=== PATIENT | female | born 1980 | race Caucasian/White ===

== ENCOUNTER 2016-04-09 17:25 | Emergency (ER) | payer SELFPAY ==
--- NOTE | 2016-04-09 17:54 | ER Document Report ---
ED Medical Screen (RME) - General Chief Complaint: Urinary Problem Stated Complaint: PAINFUL URINATION Time seen by provider: 17:52 Mode of Arrival: Ambulatory Information source: Patient Notes: 35 yo female presents to ed for cramping fever and pain with urination. 5 weeks TRAVEL OUTSIDE OF THE [place] IN LAST 30 DAYS: No - HPI Onset: Other - 2 days Onset/Duration: Gradual, Worse Quality of pain: Burning, Cramping Severity: Moderate Pain Level: 2 Associated Symptoms: Other - frequent urination burning cramping Exacerbated by: Denies Relieved by: Denies Similar symptoms previously: Yes Recently seen / treated by doctor: No - Related Data Smoking: Cigarettes - 1/2 ppd Frequency of alcohol use: None Drug Abuse: None Allergies/Adverse Reactions: No Known Allergies Allergy (Verified 02/12/15 22:58) Past Medical History Past Surgical History: Reports: Hx Abdominal Surgery - pyloric stenosis, Hx Appendectomy, Hx Section, Hx Gynecologic Surgery - surgery to remove mirena - Immunizations Immunizations up to date: No Hx Diphtheria, Pertussis, Tetanus Vaccination: Yes Physical Exam - Vital signs Vitals: Temp Pulse Resp BP Pulse Ox 97.9 F 98 16 110/65 99 04/09/16 17:39 04/09/16 17:39 04/09/16 17:39 04/09/16 17:39 04/09/16 17:39 Course - Vital Signs Vital signs: Temp Pulse Resp BP Pulse Ox 97.9 F 98 16 110/65 99 04/09/16 17:39 04/09/16 17:39 04/09/16 17:39 04/09/16 17:39 04/09/16 17:39
[2016-04-09 18:14] LABS: APPEARANCE,URINE CLEAR; BILIRUBIN,URINE NEGATIVE (NEGATIVE); GLUCOSE, URINE NEGATIVE (NEGATIVE); KETONES,URINE NEGATIVE (NEGATIVE); LEUKOCYTE ESTERASE,URINE NEGATIVE (NEGATIVE); NITRITE,URINE NEGATIVE (NEGATIVE); PROTEIN,URINE NEGATIVE (NEGATIVE); URINE SPECIFIC GRAVITY 1.004; UROBILINOGEN,URINE NEGATIVE mg/dL (<2.0)
--- NOTE | 2016-04-09 21:08 | ER Document Report ---
ED GI/ - General Chief Complaint: Pain With Urination Stated Complaint: PAINFUL URINATION Mode of Arrival: Ambulatory Information source: Patient Notes: Patient is a 35-year-old female who presents approximately 5 weeks with some lower abdominal cramping and dysuria. Patient states the dysuria started today and she is also having more frequency of urination. She denies any low back pain, fever, chills, hematuria, vaginal bleeding or discharge. TRAVEL OUTSIDE OF THE [place] IN LAST 30 DAYS: No - Related Data Allergies/Adverse Reactions: No Known Allergies Allergy (Verified 02/12/15 22:58) Past Medical History - General Information source: Patient - Social History Smoking Status: Current Every Day Smoker Frequency of alcohol use: None Drug Abuse: None Family History: Arthritis, DM, Hypertension, Malignancy, Thyroid Disfunction, Other - Pulmonary embolism. Patient has suicidal ideation: No Patient has homicidal ideation: No Past Surgical History: Reports: Hx Abdominal Surgery - pyloric stenosis, Hx Appendectomy, Hx Section, Hx Gynecologic Surgery - surgery to remove mirena - Immunizations Immunizations up to date: No Hx Diphtheria, Pertussis, Tetanus Vaccination: Yes Review of Systems - Review of Systems Constitutional: No symptoms reported EENT: No symptoms reported Cardiovascular: No symptoms reported Respiratory: No symptoms reported Gastrointestinal: No symptoms reported Genitourinary: See HPI Female Genitourinary: See HPI Musculoskeletal: No symptoms reported Skin: No symptoms reported Hematologic/Lymphatic: No symptoms reported Neurological/Psychological: No symptoms reported Physical Exam - Vital signs Vitals: Temp Pulse Resp BP Pulse Ox 97.9 F 98 16 110/65 99 04/09/16 17:39 04/09/16 17:39 04/09/16 17:39 04/09/16 17:39 04/09/16 17:39 - Notes Notes: PHYSICAL EXAMINATION: GENERAL: Well-appearing and in no acute distress. HEAD: Atraumatic, normocephalic. EYES: Pupils equal round and reactive to light, extraocular movements intact, sclera anicteric, conjunctiva are normal. NECK: Normal range of motion, supple without lymphadenopathy LUNGS: CTAB and equal. No wheezes rales or rhonchi. HEART: Regular rate and rhythm without murmurs ABDOMEN: Soft, mild suprapubic tenderness. No guarding, no rebound BACK: no vertebral tenderness, normal ROM GI/: no CVA tenderness EXTREMITIES: Normal range of motion, no pitting edema. No cyanosis. NEUROLOGICAL: Cranial nerves grossly intact. Normal sensory/motor exams. PSYCH: Normal mood, normal affect. SKIN: Warm, Dry, normal turgor, no rashes or lesions noted Course - Re-evaluation Re-evalutation: 04/10/16 06:56 Ultrasound does not reveal an intrauterine , however patient is only approximately 5 weeks based on last menstrual period and this may be the reason nothing is being visualized on ultrasound at this time. It does not appear as though there is evidence for ectopic on ultrasound at this time. Patient did not want to wait on hCG, serum and after she was discharged nurse was called stating that the blood sent to the lab was "not good." We do not have an initial hCG quantitative to compare anything to at this time. Urine culture has been sent and pending. 04/10/16 06:57 04/10/16 06:58 - Vital Signs Vital signs: Temp Pulse Resp BP Pulse Ox 98.1 F 86 18 104/69 100 04/09/16 23:45 04/09/16 23:45 04/09/16 23:45 04/09/16 23:45 04/09/16 23:45 - Laboratory Laboratory results interpreted by me: 04/09/16 18:00 Urine HCG, Qual POSITIVE H Discharge - Discharge Clinical Impression: Dysuria Qualifiers: Weeks of gestation: less than 8 weeks Qualified Code(s): Z3A.01 - Less than 8 weeks gestation of Condition: Stable Disposition: HOME, SELF-CARE Additional Instructions: Return immediately for any new or worsening symptoms. Please return in 2 days for repeat hcg level. Follow up with obgyn, call tomorrow to make followup appointment. Prescriptions: Nitrofurantoin/Nitrofuran Mac [Macrobid 100 mg Capsule] 1 tab PO BID #14 capsule Forms: Follow-Up Laboratory Testing
[2016-04-09] MEDS ORDERED: NITROFURANTOIN MONOHYD/M-CRYST 100 MG CAPSULE PO ONE (22:54)
[2016-04-10 01:42] VITALS: BP 104/69
== END 2016-04-09 23:45 | disposition home or self-care (01) ==
LOC: ER 17:25
DX: R30.0 Dysuria (principal); Z3A.01 Less than 8 weeks gestation of pregnancy; R30.9 Painful micturition, unspecified; F17.210 Nicotine dependence, cigarettes, uncomplicated; R10.30 Lower abdominal pain, unspecified
CPT/HCPCS: 99284; 87086; 81025; 87088; 81001; 87186; 76817; 93976; J8499

== ENCOUNTER 2016-05-24 12:21 | Emergency (ER) | payer MEDICAID ==
--- NOTE | 2016-05-24 12:29 | ER Document Report ---
ED Medical Screen (RME) - General Stated Complaint: CONGESTION/COUGH Mode of Arrival: Ambulatory Information source: Patient Notes: Patient complains of cold symptoms with chest tightness, symptoms started 2 days ago. Patient is currently 10 weeks . No fever hx: None I have greeted and performed a rapid initial assessment of this patient. A comprehensive ED assessment and evaluation of the patient, analysis of test results and completion of the medical decision making process will be conducted by additional ED providers. TRAVEL OUTSIDE OF THE [place] IN LAST 30 DAYS: No - Related Data Allergies/Adverse Reactions: No Known Allergies Allergy (Verified 02/12/15 22:58) Past Medical History Past Surgical History: Reports: Hx Abdominal Surgery - pyloric stenosis, Hx Appendectomy, Hx Section, Hx Gynecologic Surgery - surgery to remove mirena - Immunizations Immunizations up to date: No Hx Diphtheria, Pertussis, Tetanus Vaccination: Yes Physical Exam - Vital signs Vitals: Temp Pulse Resp BP Pulse Ox 98.0 F 97 16 113/65 100 05/24/16 12:25 05/24/16 12:05/24/16 12:05/24/16 12:25 05/24/16 12:25 - Respiratory Respiratory status: No respiratory distress Breath sounds: Nonproductive cough. No: Rales, Rhonchi, Wheezing Course - Vital Signs Vital signs: Temp Pulse Resp BP Pulse Ox 98.0 F 97 16 113/65 100 05/24/16 12:25 05/24/16 12:25 05/24/16 12:25 05/24/16 12:25 05/24/16 12:25
--- NOTE | 2016-05-24 14:28 | ER Document Report ---
ED General - General Chief Complaint: Cold Symptoms Stated Complaint: CONGESTION/COUGH Mode of Arrival: Ambulatory Information source: Patient TRAVEL OUTSIDE OF THE [place] IN LAST 30 DAYS: No - HPI Onset: Yesterday Onset/Duration: Sudden Quality of pain: Achy, Dull Severity: Mild Associated symptoms: Body/muscle aches, Chills, Nonproductive cough. denies: Headache, Nausea, Vomiting, Shortness of breath Exacerbated by: Denies Relieved by: Denies Similar symptoms previously: No Recently seen / treated by doctor: No - Related Data Allergies/Adverse Reactions: No Known Allergies Allergy (Verified 05/24/16 12:28) Past Medical History - General Information source: Patient - Social History Smoking Status: Current Every Day Smoker Chew tobacco use (# tins/day): No Frequency of alcohol use: None Drug Abuse: None Lives with: Family Family History: Arthritis, DM, Hypertension, Malignancy, Thyroid Disfunction, Other - Pulmonary embolism. Patient has suicidal ideation: No Patient has homicidal ideation: No - Past Medical History Cardiac Medical History: Reports: None Pulmonary Medical History: Reports: None EENT Medical History: Reports: None Neurological Medical History: Reports: None Endocrine Medical History: Reports: None Renal/ Medical History: Reports: None. Denies: Hx Peritoneal Dialysis Malignancy Medical History: Reports: None GI Medical History: Reports: None Musculoskeltal Medical History: Reports None Psychiatric Medical History: Reports: None Past Surgical History: Reports: Hx Abdominal Surgery - pyloric stenosis, Hx Appendectomy, Hx Section, Hx Gynecologic Surgery - surgery to remove mirena - Immunizations Immunizations up to date: No Hx Diphtheria, Pertussis, Tetanus Vaccination: Yes Review of Systems - Review of Systems Constitutional: Chills EENT: Throat pain Cardiovascular: No symptoms reported Respiratory: See HPI, Cough Gastrointestinal: Poor appetite Genitourinary: No symptoms reported Female Genitourinary: - 10 WKS, Musculoskeletal: No symptoms reported Skin: No symptoms reported Physical Exam - Vital signs Vitals: Temp Pulse Resp BP Pulse Ox 98.0 F 97 16 113/65 100 05/24/16 12:25 05/24/16 12:25 05/24/16 12:25 05/24/16 12:25 05/24/16 12:25 Interpretation: Normal. No: Tachycardic, Tachypneic, Febrile - General General appearance: Appears well, Alert In distress: None - HEENT Head: Normocephalic Eyes: Normal Conjunctiva: Normal Ears: Normal Nasal: Normal Mouth/Lips: Normal Mucous membranes: Normal Pharynx: Erythema - MILD Neck: Normal - Respiratory Respiratory status: No respiratory distress Breath sounds: Normal, Nonproductive cough - INFREQUENT - Cardiovascular Rhythm: Regular Heart sounds: Normal auscultation Murmur: No - Abdominal Inspection: Normal Distension: No distension - Back Back: Normal - Extremities General upper extremity: Normal inspection General lower extremity: Normal inspection - Neurological Neuro grossly intact: Yes Cognition: Normal Orientation: AAOx4 - Psychological Associated symptoms: Normal affect, Normal mood - Skin Skin Temperature: Warm Skin Moisture: Dry Skin Color: Normal Skin Turgor: Elastic Course - Vital Signs Vital signs: Temp Pulse Resp BP Pulse Ox 98.0 F 97 16 113/65 100 05/24/16 12:25 05/24/16 12:25 05/24/16 12:25 05/24/16 12:25 05/24/16 12:25 Discharge - Discharge Clinical Impression: Viral upper respiratory illness Qualifiers: Weeks of gestation: 10 weeks Qualified Code(s): Z3A.10 - 10 weeks gestation of Condition: Stable Disposition: HOME, SELF-CARE Instructions: Upper Respiratory Illness ([facility]), Viral Syndrome ([facility]), Acetaminophen Additional Instructions: REST, DRINK PLENTY OF FLUIDS. YOU MAY TAKE TYLENOL IF NEEDED FOR PAIN OR FEVER CONTROL. FOLLOW UP IF NOT IMPROVED IN 3 DAYS, OR SOONER IF YOU GET WORSE OR ANY NEW PROBLEMS. Forms: Return to Work Referrals: DELLA GONZALEZ MD [Primary Care Provider] - Follow up as needed
[2016-05-24 15:16] VITALS: BP 108/66
== END 2016-05-24 15:11 | disposition home or self-care (01) ==
LOC: ER 12:21
DX: O99.511 Diseases of the respiratory system complicating pregnancy, first trimester (principal); J06.9 Acute upper respiratory infection, unspecified; B97.89 Other viral agents as the cause of diseases classified elsewhere; O26.891 Other specified pregnancy related conditions, first trimester; R05 Cough; R68.83 Chills (without fever); R63.0 Anorexia; R07.0 Pain in throat; O99.331 Smoking (tobacco) complicating pregnancy, first trimester; F17.200 Nicotine dependence, unspecified, uncomplicated; O99.89 Other specified diseases and conditions complicating pregnancy, childbirth and the puerperium; M79.1 Myalgia; Z3A.10 10 weeks gestation of pregnancy
CPT/HCPCS: 99283

== ENCOUNTER 2017-03-03 11:55 | Emergency (ER) | payer MEDICAID ==
[2017-03-03 12:16] VITALS: BP 115/76
== END 2017-03-03 13:20 | disposition left against medical advice (07) ==
LOC: ER 11:55
DX: Z53.9 Procedure and treatment not carried out, unspecified reason (principal); R05 Cough; R09.81 Nasal congestion; R51 Headache

== ENCOUNTER 2017-04-17 16:02 | Emergency (ER) | payer MEDICAID ==
--- NOTE | 2017-04-17 16:45 | ER Document Report ---
ED Medical Screen (RME) - General Chief Complaint: Pain All Over Stated Complaint: NAUSEA,DIARRHEA,BODY PAIN Time Seen by Provider: 04/17/17 16:30 Mode of Arrival: Ambulatory TRAVEL OUTSIDE OF THE [place] IN LAST 30 DAYS: No - HPI Patient complains to provider of: total body pain Onset: Other - pt states she has had "total body pain" for the past 2 months -- now with nausea, cramping of abdomen - Related Data Allergies/Adverse Reactions: levofloxacin [From Levaquin] Adverse Reaction (Intermediate, Verified 04/17/17 16:27) Home Medications: Current Home Medications No Home Medications 04/17/17 [History] Past Medical History - Social History Chew tobacco use (# tins/day): No Frequency of alcohol use: Occasional Drug Abuse: None Renal/ Medical History: Denies: Hx Peritoneal Dialysis Past Surgical History: Reports: Hx Abdominal Surgery - pyloric stenosis, Hx Appendectomy, Hx Section, Hx Gynecologic Surgery - surgery to remove mirena - Immunizations Immunizations up to date: No Hx Diphtheria, Pertussis, Tetanus Vaccination: Yes Physical Exam - Vital signs Vitals: Temp Pulse Resp BP Pulse Ox 97.6 F 99 20 125/77 98 04/17/17 16:23 04/17/17 16:23 04/17/17 16:23 04/17/17 16:23 04/17/17 16:23 Course - Vital Signs Vital signs: Temp Pulse Resp BP Pulse Ox 97.6 F 99 20 125/77 98 04/17/17 16:23 04/17/17 16:23 04/17/17 16:23 04/17/17 16:23 04/17/17 16:23
[2017-04-17 17:03] LABS: ABSOLUTE BASOPHILS # (AUTO) 0.1 10^3/uL (0.0-0.2); ABSOLUTE EOSINOPHILS # (AUTO) 0.1 10^3/uL (0.0-0.6); ABSOLUTE MONOCYTES (AUTO) 0.4 10^3/uL (0.1-1.4); ABSOLUTE NEUT (AUTO) 3.1 10^3/uL (1.7-8.2); BASOPHILS % (AUTO) 0.9 % (0-2); EOSINOPHILS % (AUTO) 2.2 % (0-6); HEMATOCRIT 45.1 % (36.0-47.0); HEMOGLOBIN 15.1 g/dL (12.0-15.5); LYMPHOCYTES % (AUTO) 34.6 % (13-45); MEAN CORPUSCULAR HEMOGLOBIN 29.9 pg (27.0-33.4); MEAN CORPUSCULAR HGB CONC 33.6 g/dL (32.0-36.0); MEAN CORPUSCULAR VOLUME 89 fl (80-97); MONOCYTES % (AUTO) 7.2 % (3-13); PLATELET COUNT 276 10^3/uL (150-450); RED BLOOD COUNT 5.05 10^6/uL (3.72-5.28); RED CELL DISTRIBUTION WIDTH 13.5 % (11.5-14.0); SEGMENTED NEUTROPHILS % (AUTO) 55.1 % (42-78); TOTAL CELLS COUNTED % (AUTO) 100 %; WHITE BLOOD COUNT 5.6 10^3/uL (4.0-10.5)
--- NOTE | 2017-04-17 17:11 | RADIOLOGY REPORT (SQ) ---
EXAM DESCRIPTION: ACUTE ABDOMEN SERIES COMPLETED DATE/TIME: 04/17/2017 5:03 pm REASON FOR STUDY: abd pain COMPARISON: 02/05/2017. NUMBER OF VIEWS: Three views. TECHNIQUE: Frontal chest, supine abdomen and upright/decubitus abdomen radiographic images acquired. LIMITATIONS: None. FINDINGS: CHEST: Lungs clear of infiltrates. FREE AIR: None. No abnormal gas collections. BOWEL GAS PATTERN: Nonobstructive pattern. No dilated loops or air fluid levels. CALCIFICATIONS: No suspicious calcifications. HARDWARE: None in the abdomen. SOFT TISSUES: No gross mass or suggestion of organomegaly. BONES: No acute fracture. No worrisome bone lesions. OTHER: No other significant finding. IMPRESSION: NO RADIOGRAPHIC EVIDENCE FOR ACUTE ABDOMINAL DISEASE. TECHNICAL DOCUMENTATION: JOB ID: [id number] [employer]- All Rights Reserved
[2017-04-17 17:19] LABS: ALANINE AMINOTRANSFERASE 32 U/L (9-52); ALBUMIN 4.4 g/dL (3.5-5.0); ALKALINE PHOSPHATASE 87 U/L (38-126); ANION GAP 12 (5-19); ASPARTATE AMINO TRANSFERASE 24 U/L (14-36); BILIRUBIN,DIRECT 0.2 mg/dL (0.0-0.4); BILIRUBIN,TOTAL 0.3 mg/dL (0.2-1.3); BLOOD UREA NITROGEN 7 mg/dL (7-20); CALCIUM 10.1 mg/dL (8.4-10.2); CARBON DIOXIDE 25 mmol/L (22-30); CHLORIDE 105 mmol/L (98-107); GLUCOSE 101 mg/dL (75-110); LIPASE 65.2 U/L (23-300); POTASSIUM 4.9 mmol/L (3.6-5.0); SODIUM 142.2 mmol/L (137-145); TOTAL PROTEIN 6.7 g/dL (6.3-8.2)
[2017-04-17 19:42] LABS: BILIRUBIN,URINE NEGATIVE (NEGATIVE); COLOR,URINE STRAW; GLUCOSE, URINE NEGATIVE (NEGATIVE); KETONES,URINE NEGATIVE (NEGATIVE); LEUKOCYTE ESTERASE,URINE NEGATIVE (NEGATIVE); NITRITE,URINE NEGATIVE (NEGATIVE); PROTEIN,URINE NEGATIVE (NEGATIVE); URINE SPECIFIC GRAVITY 1.005; UROBILINOGEN,URINE NEGATIVE mg/dL (<2.0)
[2017-04-17 19:43] LABS: APPEARANCE,URINE CLEAR
--- NOTE | 2017-04-17 20:12 | ER Document Report ---
ED General - General Chief Complaint: Pain All Over Stated Complaint: NAUSEA,DIARRHEA,BODY PAIN Time Seen by Provider: 04/17/17 16:30 Mode of Arrival: Ambulatory TRAVEL OUTSIDE OF THE [place] IN LAST 30 DAYS: No - HPI Patient complains to provider of: pain all over Associated symptoms: Body/muscle aches, Nausea Similar symptoms previously: No Recently seen / treated by doctor: No Notes: States she has had body pain all over her body for the last 2 months after taking Levaquin for urinary tract infection. She states that she was on 2 different antibiotics prior to the Levaquin but neither of them worked to her primary put her on this medication. - Related Data Allergies/Adverse Reactions: levofloxacin [From Levaquin] Adverse Reaction (Intermediate, Verified 04/17/17 16:27) Home Medications: Current Home Medications No Home Medications 04/17/17 [History] Past Medical History - General Information source: Patient - Social History Smoking Status: Current Every Day Smoker Chew tobacco use (# tins/day): No Frequency of alcohol use: Occasional Drug Abuse: None Family History: Arthritis, DM, Hypertension, Malignancy, Thyroid Disfunction, Other - Pulmonary embolism. Patient has suicidal ideation: No Patient has homicidal ideation: No Pulmonary Medical History: Reports: None Neurological Medical History: Reports: None Endocrine Medical History: Reports: None Renal/ Medical History: Reports: None. Denies: Hx Peritoneal Dialysis Malignancy Medical History: Reports: None GI Medical History: Reports: None Musculoskeltal Medical History: Reports None Skin Medical History: Reports None Other: Patient has a 4 month old child. Psychiatric Medical History: Reports: None Past Surgical History: Reports: Hx Abdominal Surgery - pyloric stenosis, Hx Appendectomy, Hx Section, Hx Gynecologic Surgery - surgery to remove mirena - Immunizations Immunizations up to date: No Hx Diphtheria, Pertussis, Tetanus Vaccination: Yes Review of Systems - Review of Systems Constitutional: denies: Chills, Diaphoresis, Fever, Malaise, Weakness, Weight gain, Weight loss, Recent illness EENT: No symptoms reported Cardiovascular: No symptoms reported Gastrointestinal: Nausea, Vomiting Genitourinary: No symptoms reported Female Genitourinary: Irregular period Musculoskeletal: Other - pain all over-joints more than muscles Skin: No symptoms reported Hematologic/Lymphatic: No symptoms reported Neurological/Psychological: No symptoms reported Physical Exam - Vital signs Vitals: Temp Pulse Resp BP Pulse Ox 97.6 F 99 20 125/77 98 04/17/17 16:23 04/17/17 16:23 04/17/17 16:23 04/17/17 16:23 04/17/17 16:23 - Notes Notes: PHYSICAL EXAMINATION: GENERAL: Well-appearing, well-nourished and in no acute distress. HEAD: Atraumatic, normocephalic. EYES: Pupils equal round and reactive to light, extraocular movements intact, conjunctiva are normal. ENT: Nares patent, oropharynx clear without exudates. Moist mucous membranes. NECK: Normal range of motion, supple without lymphadenopathy LUNGS: Breath sounds clear to auscultation bilaterally and equal. No wheezes rales or rhonchi. HEART: Regular rate and rhythm without murmurs ABDOMEN: Soft, nontender, nondistended abdomen. No guarding, no rebound. No masses appreciated. Female : deferred Musculoskeletal: Normal range of motion, no pitting or edema. No cyanosis. Mild joint laxity of bilateral upper extremity joints. No inflammatory signs of any joints. NEUROLOGICAL: Cranial nerves grossly intact. Normal speech, normal gait. Normal sensory, motor exams PSYCH: Normal mood, normal affect. SKIN: Warm, Dry, normal turgor, no rashes or lesions noted. Course - Vital Signs Vital signs: Temp Pulse Resp BP Pulse Ox 97.6 F 99 20 125/77 98 04/17/17 16:23 04/17/17 16:23 04/17/17 16:23 04/17/17 16:23 04/17/17 16:23 - Laboratory Result Diagrams: 04/17/17 16:42 04/17/17 16:42 Discharge - Discharge Clinical Impression: Body aches Disposition: HOME, SELF-CARE Referrals: [facility] [Provider Group] - Follow up as needed
[2017-04-17 20:38] VITALS: BP 107/58
== END 2017-04-17 20:37 | disposition home or self-care (01) ==
LOC: ER 16:02
DX: M25.50 Pain in unspecified joint (principal); M79.1 Myalgia; R11.2 Nausea with vomiting, unspecified; N92.6 Irregular menstruation, unspecified; F17.200 Nicotine dependence, unspecified, uncomplicated; Z87.440 Personal history of urinary (tract) infections
CPT/HCPCS: 36415; 74022; 80053; 81001; 81025; 82550; 83690; 84443; 85025; 99284

== ENCOUNTER 2017-05-03 12:56 | Emergency (ER) | payer MEDICAID ==
--- NOTE | 2017-05-03 13:16 | ER Document Report ---
ED Medical Screen (RME) - General Chief Complaint: Dizziness Stated Complaint: DIZZINESS Time Seen by Provider: 05/03/17 13:14 Mode of Arrival: Ambulatory Information source: Patient TRAVEL OUTSIDE OF THE [place] IN LAST 30 DAYS: No - HPI Patient complains to provider of: dizziness Onset: Other - pt with multiple c/o including dizziness, entire body pain, anorexia, earache, SOB ,adn palpitations for the past several days - Related Data Allergies/Adverse Reactions: levofloxacin [From Levaquin] Adverse Reaction (Intermediate, Verified 05/03/17 13:14) Past Medical History - Social History Frequency of alcohol use: Rare Drug Abuse: None Renal/ Medical History: Denies: Hx Peritoneal Dialysis Past Surgical History: Reports: Hx Abdominal Surgery - pyloric stenosis, Hx Appendectomy, Hx Section - x2, Hx Gynecologic Surgery - surgery to remove mirena, Hx Tubal Ligation - Immunizations Immunizations up to date: No Hx Diphtheria, Pertussis, Tetanus Vaccination: Yes Physical Exam - Vital signs Vitals: Temp Pulse Resp BP Pulse Ox 98.1 F 98 14 132/75 H 99 05/03/17 13:05 05/03/17 13:05 05/03/17 13:05 05/03/17 13:05 05/03/17 13:05 Course - Vital Signs Vital signs: Temp Pulse Resp BP Pulse Ox 98.1 F 98 14 132/75 H 99 05/03/17 13:05 05/03/17 13:05 05/03/17 13:05 05/03/17 13:05 05/03/17 13:05
[2017-05-03 13:56] LABS: ABSOLUTE LYMPHOCYTES (AUTO) 1.7 10^3/uL (0.5-4.7); ABSOLUTE MONOCYTES (AUTO) 0.3 10^3/uL (0.1-1.4); ABSOLUTE NEUT (AUTO) 1.8 10^3/uL (1.7-8.2); BASOPHILS % (AUTO) 0.6 % (0-2); EOSINOPHILS % (AUTO) 0.9 % (0-6); HEMATOCRIT 44.9 % (36.0-47.0); HEMOGLOBIN 15.4 g/dL (12.0-15.5); LYMPHOCYTES % (AUTO) 44.8 % (13-45); MEAN CORPUSCULAR HEMOGLOBIN 30.2 pg (27.0-33.4); MEAN CORPUSCULAR HGB CONC 34.3 g/dL (32.0-36.0); MEAN CORPUSCULAR VOLUME 88 fl (80-97); MONOCYTES % (AUTO) 8.4 % (3-13); PLATELET COUNT 255 10^3/uL (150-450); RED BLOOD COUNT 5.09 10^6/uL (3.72-5.28); RED CELL DISTRIBUTION WIDTH 13.4 % (11.5-14.0); SEGMENTED NEUTROPHILS % (AUTO) 45.3 % (42-78); TOTAL CELLS COUNTED % (AUTO) 100 %; WHITE BLOOD COUNT 3.9 10^3/uL (4.0-10.5)
[2017-05-03 14:00] LABS: APPEARANCE,URINE CLEAR; BILIRUBIN,URINE NEGATIVE (NEGATIVE); COLOR,URINE YELLOW; GLUCOSE, URINE NEGATIVE (NEGATIVE); KETONES,URINE TRACE mg/dL (NEGATIVE); LEUKOCYTE ESTERASE,URINE NEGATIVE (NEGATIVE); NITRITE,URINE NEGATIVE (NEGATIVE); PROTEIN,URINE NEGATIVE (NEGATIVE); URINE SPECIFIC GRAVITY 1.006; UROBILINOGEN,URINE NEGATIVE mg/dL (<2.0)
--- NOTE | 2017-05-03 14:05 | RADIOLOGY REPORT (SQ) ---
EXAM DESCRIPTION: CHEST PA/LAT COMPLETED DATE/TIME: 05/03/2017 1:55 pm REASON FOR STUDY: sob COMPARISON: 06/17/2014 EXAM PARAMETERS: NUMBER OF VIEWS: two views TECHNIQUE: Digital Frontal and Lateral radiographic views of the chest acquired. RADIATION DOSE: NA LIMITATIONS: none FINDINGS: LUNGS AND PLEURA: No opacities, masses or pneumothorax. No pleural effusion. MEDIASTINUM AND HILAR STRUCTURES: No masses or contour abnormalities. HEART AND VASCULAR STRUCTURES: Heart normal size. No evidence for failure. BONES: No acute findings. HARDWARE: None in the chest. OTHER: No other significant finding. IMPRESSION: NO SIGNIFICANT RADIOGRAPHIC FINDING IN THE CHEST. TECHNICAL DOCUMENTATION: JOB ID: [id number] [employer]- All Rights Reserved
[2017-05-03 14:15] LABS: ALANINE AMINOTRANSFERASE 26 U/L (9-52); ALBUMIN 4.5 g/dL (3.5-5.0); ALKALINE PHOSPHATASE 65 U/L (38-126); ANION GAP 8 (5-19); ASPARTATE AMINO TRANSFERASE 25 U/L (14-36); BILIRUBIN,DIRECT 0.2 mg/dL (0.0-0.4); BILIRUBIN,TOTAL 0.4 mg/dL (0.2-1.3); BLOOD UREA NITROGEN 7 mg/dL (7-20); CARBON DIOXIDE 27 mmol/L (22-30); CHLORIDE 105 mmol/L (98-107); CREATINE KINASE 70 U/L (30-135); GLUCOSE 105 mg/dL (75-110); POTASSIUM 3.8 mmol/L (3.6-5.0); SODIUM 140.4 mmol/L (137-145)
[2017-05-03 14:17] LABS: URINE AMPHETAMINES SCREEN NEGATIVE; URINE BARBITURATES SCREEN NEGATIVE; URINE BENZODIAZEPINES SCREEN NEGATIVE; URINE COCAINE SCREEN NEGATIVE; URINE MARIJUANA (THC) SCREEN NEGATIVE; URINE METHADONE SCREEN NEGATIVE; URINE PHENCYCLIDINE SCREEN NEGATIVE
[2017-05-03 14:35] LABS: TROPONIN I < 0.012 ng/mL
--- NOTE | 2017-05-03 14:44 | ER Document Report ---
ED General - General Chief Complaint: Dizziness Stated Complaint: DIZZINESS Time Seen by Provider: 05/03/17 13:14 Mode of Arrival: Ambulatory Information source: Patient, Relative Notes: 36-year-old female presents with complaints of multiple vague complaints. She notes she has been having intermittent back and chest pain over the past 3-4 months, notes she becomes intermittently nauseous intermittently dizzy has tingling in the fingers and toes and palpitations. Patient notes extensive stressors there are 13 people living in her house at the same time. Patient was seen here recently had negative workup TRAVEL OUTSIDE OF THE [place] IN LAST 30 DAYS: No - HPI Onset: Other Onset/Duration: Intermittent Quality of pain: Sharp Severity: Mild Pain Level: 1 Associated symptoms: Nausea, Other Exacerbated by: Denies Relieved by: Denies Similar symptoms previously: Yes Recently seen / treated by doctor: Yes - Related Data Allergies/Adverse Reactions: levofloxacin [From Levaquin] Adverse Reaction (Intermediate, Verified 05/03/17 13:14) Past Medical History - General Information source: Patient - Social History Smoking Status: Current Every Day Smoker Cigarette use (# per day): Yes Chew tobacco use (# tins/day): No Smoking Education Provided: No Frequency of alcohol use: Rare Drug Abuse: None Family History: Arthritis, DM, Hypertension, Malignancy, Thyroid Disfunction, Other - Pulmonary embolism. Patient has suicidal ideation: No Patient has homicidal ideation: No Renal/ Medical History: Denies: Hx Peritoneal Dialysis Past Surgical History: Reports: Hx Abdominal Surgery - pyloric stenosis, Hx Appendectomy, Hx Section - x2, Hx Gynecologic Surgery - surgery to remove mirena, Hx Tubal Ligation - Immunizations Immunizations up to date: No Hx Diphtheria, Pertussis, Tetanus Vaccination: Yes Review of Systems - Review of Systems Notes: REVIEW OF SYSTEMS: CONSTITUTIONAL : Denies fever, chills, or sweats. Denies recent illness. EENT: Denies eye, ear, throat, or mouth pain or symptoms. Denies nasal or sinus congestion or discharge. Denies throat, tongue, or mouth swelling or difficulty swallowing. CARDIOVASCULAR: Denies chest pain. Denies palpitations or racing or irregular heart beat. Denies ankle edema. RESPIRATORY: Admits to chest wall pain denies cough, cold, or chest congestion. Denies shortness of breath, difficulty breathing, or wheezing. GASTROINTESTINAL: Admits to nausea decreased appetite GENITOURINARY: Denies difficulty urinating, painful urination, burning, frequency, blood in urine, or discharge. FEMALE GENITOURINARY: Denies vaginal bleeding, heavy or abnormal periods, irregular periods. Denies vaginal discharge or odor. MUSCULOSKELETAL: Admits to back pain SKIN: Denies rash, lesions or sores. HEMATOLOGIC : Denies easy bruising or bleeding. LYMPHATIC: Denies swollen, enlarged glands. NEUROLOGICAL: Denies confusion or altered mental status. Denies passing out or loss of consciousness. Denies dizziness or lightheadedness. Denies headache. Denies weakness or paralysis or loss of use of either side. Denies problems with gait or speech. Denies sensory loss, numbness, or tingling. Denies seizures. PSYCHIATRIC: Admits to anxiety stress ALL OTHER SYSTEMS REVIEWED AND NEGATIVE. PHYSICAL EXAMINATION: GENERAL: Well-appearing, well-nourished and in no acute distress. HEAD: Atraumatic, normocephalic. EYES: Pupils equal round and reactive to light, extraocular movements intact, conjunctiva are normal. ENT: Nares patent, oropharynx clear without exudates. Moist mucous membranes. NECK: Normal range of motion, supple without lymphadenopathy LUNGS: Breath sounds clear to auscultation bilaterally and equal. No wheezes rales or rhonchi. HEART: Regular rate and rhythm without murmurs ABDOMEN: Soft, nontender, nondistended abdomen. No guarding, no rebound. No masses appreciated. Female : deferred Musculoskeletal: Normal range of motion, no pitting or edema. No cyanosis. NEUROLOGICAL: Cranial nerves grossly intact. Normal speech, normal gait. Normal sensory, motor exams PSYCH: Normal mood, normal affect. SKIN: Warm, Dry, normal turgor, no rashes or lesions noted. Dictation was performed using [employer] voice recognition software Physical Exam - Vital signs Vitals: Temp Pulse Resp BP Pulse Ox 98.1 F 98 14 132/75 H 99 05/03/17 13:05 05/03/17 13:05 05/03/17 13:05 05/03/17 13:05 05/03/17 13:05 Course - Re-evaluation Re-evalutation: 05/03/17 15:09 Patient's physical examination was extremely benign, she is a well-appearing female in no acute distress vital signs are normal, lab work noted no significant abnormality. I do believe this is more anxiety related in nature, patient will be started on medication and admits that she is definitely anxious and that this is definitely the cause of her complaints. I will have her follow -up with mental health as well for further evaluation care After performing a Medical Screening Examination, I estimate there is LOW risk for RUPTURED ESOPHAGUS, PNEUMOTHORAX, PULMONARY EMBOLISM, ACUTE CORONARY SYNDROME, OR THORACIC AORTIC DISSECTION, thus I consider the discharge disposition reasonable. I have reevaluated this patient multiple times and no significant life threatening changes are noted. The patient and I have discussed the diagnosis and risks, and we agree with discharging home with close follow-up. We also discussed returning to the Emergency Department immediately if new or worsening symptoms occur. We have discussed the symptoms which are most concerning (e.g., bloody sputum, worsening pain or shortness of breath) that necessitate immediate return. - Vital Signs Vital signs: Temp Pulse Resp BP Pulse Ox 98.1 F 98 14 132/75 H 99 05/03/17 13:05 05/03/17 13:05 05/03/17 13:05 05/03/17 13:05 05/03/17 13:05 - Laboratory Result Diagrams: 05/03/17 13:35 05/03/17 13:35 Laboratory results interpreted by me: 05/03/17 05/03/17 13:35 13:35 WBC 3.9 L Urine Ketones TRACE H Urine Blood MODERATE H - EKG Interpretation by Ok EKG shows normal: Sinus rhythm, Story, Intervals, QRS Complexes Discharge - Discharge Clinical Impression: Body aches, Anxiety Condition: Stable Disposition: HOME, SELF-CARE Instructions: Anxiety ([facility]) Additional Instructions: Follow up with your physician tomorrow for further care or return to the ED IMMEDIATELY if symptoms worsen or new concerns occur. If you cannot afford to follow up with your primary care physician a list of low cost clinics have been provided at the end of your discharge papers as well. Prescriptions: Hydroxyzine Pamoate [Vistaril 50 mg Capsule] 50 mg PO BID #30 capsule
[2017-05-03 15:45] VITALS: BP 110/68
--- NOTE | 2017-05-03 18:19 | EKG REPORT ---
SEVERITY:- OTHERWISE NORMAL ECG - SINUS RHYTHM BORDERLINE RIGHT AXIS DEVIATION : Confirmed by: Gabriel Caro MD 03-May-2017 18:17:40
== END 2017-05-03 15:42 | disposition home or self-care (01) ==
LOC: ER 12:56
DX: M79.1 Myalgia (principal); F41.9 Anxiety disorder, unspecified; R42 Dizziness and giddiness; F17.210 Nicotine dependence, cigarettes, uncomplicated
CPT/HCPCS: 36415; 71046; 80053; 80307; 81001; 81025; 82550; 82553; 84484; 85025; 93005; 93010; 99284

== ENCOUNTER 2017-05-19 13:16 | Emergency (ER) | payer SELFPAY ==
[2017-05-19 13:38] VITALS: BP 127/82
--- NOTE | 2017-05-19 14:05 | ER Document Report ---
ED Dizziness/Weakness - General Chief Complaint: Dizziness Stated Complaint: DIZZY,NASAL CONGESTION,CONGESTION Time Seen by Provider: 05/19/17 14:00 Mode of Arrival: Ambulatory Information source: Patient TRAVEL OUTSIDE OF THE [place] IN LAST 30 DAYS: No - Related Data Allergies/Adverse Reactions: levofloxacin [From Levaquin] Adverse Reaction (Intermediate, Verified 05/19/17 13:17) Past Medical History - General Information source: Patient - Social History Smoking Status: Current Every Day Smoker Chew tobacco use (# tins/day): No Frequency of alcohol use: Rare Drug Abuse: None Family History: Arthritis, DM, Hypertension, Malignancy, Thyroid Disfunction, Other - Pulmonary embolism. Patient has suicidal ideation: No Patient has homicidal ideation: No Renal/ Medical History: Denies: Hx Peritoneal Dialysis Past Surgical History: Reports: Hx Abdominal Surgery - pyloric stenosis, Hx Appendectomy, Hx Section - x2, Hx Gynecologic Surgery - surgery to remove mirena, Hx Tubal Ligation - Immunizations Immunizations up to date: No Hx Diphtheria, Pertussis, Tetanus Vaccination: Yes Review of Systems - Review of Systems Constitutional: Chills, Malaise. denies: Fever EENT: Nose congestion, Nose discharge Cardiovascular: denies: Chest pain, Palpitations Respiratory: Cough. denies: Short of breath Gastrointestinal: denies: Diarrhea, Vomiting Physical Exam - Vital signs Vitals: Temp Pulse Resp BP Pulse Ox 98.0 F 95 16 127/82 H 98 05/19/17 13:38 05/19/17 13:38 05/19/17 13:38 05/19/17 13:38 05/19/17 13:38 Interpretation: Normal - General General appearance: Appears well, Alert - HEENT Head: Normocephalic, Atraumatic Eyes: Normal Pupils: PERRL - Respiratory Respiratory status: No respiratory distress Chest status: Nontender Breath sounds: Normal Chest palpation: Normal - Cardiovascular Rhythm: Regular Heart sounds: Normal auscultation Murmur: No - Abdominal Inspection: Normal Distension: No distension Bowel sounds: Normal Tenderness: Nontender Organomegaly: No organomegaly - Back Back: Normal, Nontender - Extremities General upper extremity: Normal inspection, Nontender, Normal color, Normal ROM , Normal temperature General lower extremity: Normal inspection, Nontender, Normal color, Normal ROM , Normal temperature, Normal weight bearing. No: Marcio's sign - Neurological Neuro grossly intact: Yes Cognition: Normal Orientation: AAOx4 Phoenix Coma Scale Eye Opening: Spontaneous [place] Coma Scale Verbal: Oriented Dari Coma Scale Motor: Obeys Commands Dari Coma Scale Total: 15 Speech: Normal Motor strength normal: LUE, RUE, LLE, RLE Sensory: Normal - Psychological Associated symptoms: Normal affect, Normal mood - Skin Skin Temperature: Warm Skin Moisture: Dry Skin Color: Normal Course - Vital Signs Vital signs: Temp Pulse Resp BP Pulse Ox 98.0 F 95 16 127/82 H 98 05/19/17 13:38 05/19/17 13:38 05/19/17 13:38 05/19/17 13:38 05/19/17 13:38 Discharge - Discharge Clinical Impression: URI (upper respiratory infection) Qualifiers: URI type: unspecified URI Qualified Code(s): J06.9 - Acute upper respiratory infection, unspecified Condition: Stable Disposition: HOME, SELF-CARE Instructions: Upper Respiratory Illness ([facility]) Prescriptions: Cefdinir 300 mg PO BID 7 Days #14 capsule Codeine/Promethazine HCl [Promethazine-Codeine Syrup] 10 ml PO Q4 PRN #1 bottle PRN Reason: Forms: Return to Work
== END 2017-05-19 14:09 | disposition home or self-care (01) ==
LOC: ER 13:16
DX: J06.9 Acute upper respiratory infection, unspecified (principal); R42 Dizziness and giddiness; R09.81 Nasal congestion; F17.200 Nicotine dependence, unspecified, uncomplicated; Z98.51 Tubal ligation status
CPT/HCPCS: 99283

== ENCOUNTER 2017-10-03 16:05 | Emergency (ER) | payer SELFPAY ==
[2017-10-03 16:14] VITALS: BP 115/64
--- NOTE | 2017-10-03 16:42 | ER Document Report ---
ED General - General Chief Complaint: Abdominal Pain Stated Complaint: ABDOMINAL PAIN,PAINFUL URINATION Time Seen by Provider: 10/03/17 16:24 Mode of Arrival: Ambulatory Information source: Patient Notes: 37-year-old female presents with complaints of burning on urination. Pain back pain a few day duration. Patient denies any fevers or chills denies any nausea vomiting or diarrhea. Patient notes similar symptoms when she had a UTI in the past which was resistant to 3 different antibiotics requiring levofloxacin to curette however she notes that the levofloxacin made her whole body spasm and she no longer wishes to take it TRAVEL OUTSIDE OF THE [place] IN LAST 30 DAYS: No - HPI Onset: Other Onset/Duration: Persistent Quality of pain: Achy Severity: Mild Pain Level: 1 Associated symptoms: Other Exacerbated by: Other - Urination Relieved by: Denies Similar symptoms previously: Yes Recently seen / treated by doctor: No - Related Data Allergies/Adverse Reactions: levofloxacin [From Levaquin] Adverse Reaction (Intermediate, Verified 10/03/17 16:28) Past Medical History - Social History Smoking Status: Current Every Day Smoker Cigarette use (# per day): Yes Chew tobacco use (# tins/day): No Smoking Education Provided: No Frequency of alcohol use: Rare Drug Abuse: None Family History: Arthritis, DM, Hypertension, Malignancy, Thyroid Disfunction, Other - Pulmonary embolism. Patient has suicidal ideation: No Patient has homicidal ideation: No Renal/ Medical History: Denies: Hx Peritoneal Dialysis Past Surgical History: Reports: Hx Abdominal Surgery - pyloric stenosis, Hx Appendectomy, Hx Section - x2, Hx Gynecologic Surgery - surgery to remove mirena, Hx Tubal Ligation - Immunizations Immunizations up to date: No Hx Diphtheria, Pertussis, Tetanus Vaccination: Yes Review of Systems - Review of Systems Notes: REVIEW OF SYSTEMS: CONSTITUTIONAL : Denies fever, chills, or sweats. Denies recent illness. EENT: Denies eye, ear, throat, or mouth pain or symptoms. Denies nasal or sinus congestion or discharge. Denies throat, tongue, or mouth swelling or difficulty swallowing. CARDIOVASCULAR: Denies chest pain. Denies palpitations or racing or irregular heart beat. Denies ankle edema. RESPIRATORY: Denies cough, cold, or chest congestion. Denies shortness of breath, difficulty breathing, or wheezing. GASTROINTESTINAL: Denies abdominal pain or distention. Denies nausea, vomiting , or diarrhea. Denies blood in vomitus, stools, or per rectum. Denies black, tarry stools. Denies constipation. GENITOURINARY: Admits to burning on urination FEMALE GENITOURINARY: Denies vaginal bleeding, heavy or abnormal periods, irregular periods. Denies vaginal discharge or odor. MUSCULOSKELETAL: Denies back or neck pain or stiffness. Denies joint pain or swelling. SKIN: Denies rash, lesions or sores. HEMATOLOGIC : Denies easy bruising or bleeding. LYMPHATIC: Denies swollen, enlarged glands. NEUROLOGICAL: Denies confusion or altered mental status. Denies passing out or loss of consciousness. Denies dizziness or lightheadedness. Denies headache. Denies weakness or paralysis or loss of use of either side. Denies problems with gait or speech. Denies sensory loss, numbness, or tingling. Denies seizures. PSYCHIATRIC: Denies anxiety or stress. Denies depression, suicidal ideation, or homicidal ideation. ALL OTHER SYSTEMS REVIEWED AND NEGATIVE. PHYSICAL EXAMINATION: GENERAL: Well-appearing, well-nourished and in no acute distress. HEAD: Atraumatic, normocephalic. EYES: Pupils equal round and reactive to light, extraocular movements intact, conjunctiva are normal. ENT: Nares patent, oropharynx clear without exudates. Moist mucous membranes. NECK: Normal range of motion, supple without lymphadenopathy LUNGS: Breath sounds clear to auscultation bilaterally and equal. No wheezes rales or rhonchi. HEART: Regular rate and rhythm without murmurs ABDOMEN: Soft, nontender, nondistended abdomen. No guarding, no rebound. No masses appreciated. Female : deferred Musculoskeletal: Normal range of motion, no pitting or edema. No cyanosis. NEUROLOGICAL: Cranial nerves grossly intact. Normal speech, normal gait. Normal sensory, motor exams PSYCH: Normal mood, normal affect. SKIN: Warm, Dry, normal turgor, no rashes or lesions noted. Dictation was performed using [employer] voice recognition software Physical Exam - Vital signs Vitals: Temp Pulse Resp BP Pulse Ox 98.1 F 102 H 16 115/64 100 10/03/17 16:12 10/03/17 16:12 10/03/17 16:12 10/03/17 16:12 10/03/17 16:12 Course - Re-evaluation Re-evalutation: 10/03/17 16:42 Patient's presentation was consistent with UTI lab work pending 10/03/17 18:37 Urinalysis hCG negative, patient sent for CT given symptoms however she denies any concerns for STDs 10/03/17 18:48 ct twas negative, pt otherwise is stable will dc home with urology follow up and culture After performing a Medical Screening Examination, I estimate there is LOW risk for ACUTE APPENDICITIS, BOWEL OBSTRUCTION, ACUTE CHOLECYSTITIS, PERFORATED DIVERTICULITIS, INCARCERATED HERNIA, PANCREATITIS, PELVIC INFLAMMATORY DISEASE, PERFORATED ULCER, ECTOPIC , or TUBO-OVARIAN ABSCESS, thus I consider the discharge disposition reasonable. Also, there is no evidence or peritonitis , sepsis, or toxicity. I have reevaluated this patient multiple times and no significant life threatening changes are noted. The patient and I have discussed the diagnosis and risks, and we agree with discharging home with close follow-up with the understanding that symptoms and presentations can change. We also discussed returning to the Emergency Department immediately if new or worsening symptoms occur. We have discussed the symptoms which are most concerning (e.g., bloody stool, fever, changing or worsening pain, vomiting) that necessitate immediate return. - Vital Signs Vital signs: Temp Pulse Resp BP Pulse Ox 98.1 F 102 H 16 115/64 100 10/03/17 16:12 10/03/17 16:12 10/03/17 16:12 10/03/17 16:12 10/03/17 16:12 - Diagnostic Test Radiology reviewed: Image reviewed, Reports reviewed Discharge - Discharge Clinical Impression: Dysuria Condition: Stable Disposition: HOME, SELF-CARE Additional Instructions: Follow up with your physician tomorrow for further care or return to the ED IMMEDIATELY if symptoms worsen or new concerns occur. If you cannot afford to follow up with your primary care physician a list of low cost clinics have been provided at the end of your discharge papers as well. Prescriptions: Phenazopyridine HCl [Pyridium 200 mg Tablet] 200 mg PO TID #9 tablet Referrals: [facility] [Provider Group] - Follow up tomorrow
[2017-10-03 17:04] LABS: APPEARANCE,URINE SLIGHTLY-CLOUDY; BILIRUBIN,URINE NEGATIVE (NEGATIVE); COLOR,URINE STRAW; GLUCOSE, URINE NEGATIVE (NEGATIVE); KETONES,URINE NEGATIVE (NEGATIVE); LEUKOCYTE ESTERASE,URINE NEGATIVE (NEGATIVE); NITRITE,URINE NEGATIVE (NEGATIVE); PROTEIN,URINE NEGATIVE (NEGATIVE); URINE SPECIFIC GRAVITY 1.006; UROBILINOGEN,URINE NEGATIVE mg/dL (<2.0)
--- NOTE | 2017-10-03 18:40 | RADIOLOGY REPORT (SQ) ---
EXAM DESCRIPTION: CT LTD RENAL STONE PROTOCOL ON COMPLETED DATE/TIME: 10/03/2017 6:23 pm REASON FOR STUDY: abd pain COMPARISON: None. TECHNIQUE: CT scan of the abdomen and pelvis performed without intravenous or oral contrast. Images reviewed with lung, soft tissue, and bone windows. Reconstructed coronal and sagittal MPR images revi ewed. All images stored on PACS. All CT scanners at this facility use dose modulation, iterative reconstruction, and/or weight based d osing when appropriate to reduce radiation dose to as low as reasonably achievable (ALARA). [facility]: Dose Right [facility]: CareDose [facility]: Dose Right [facility]: Teradose 4D [facility]: Smart 2 Minutes RADIATION DOSE: CT Rad equipment meets quality standard of care and radiation dose reduction techniq ues were employed. CTDIvol: 4.8 mGy. DLP: 229 mGy-cm.mGy. LIMITATIONS: None. FINDINGS: LOWER CHEST: No significant findings. No nodules or infiltrates. NON-CONTRASTED LIVER, SPLEEN, ADRENALS: Evaluation limited by lack of IV contrast. No identified sign ificant masses. PANCREAS: No masses. No peripancreatic inflammatory changes. GALLBLADDER: No identified stones by CT criteria. No inflammatory changes to suggest cholecystitis. RIGHT KIDNEY AND URETER: No suspicious masses. Assessment limited by lack of IV contrast. No signif icant calcifications. No hydronephrosis or hydroureter. LEFT KIDNEY AND URETER: No suspicious masses. Assessment limited by lack of IV contrast. No signifi cant calcifications. No hydronephrosis or hydroureter. AORTA AND RETROPERITONEUM: No aneurysm. No retroperitoneal masses or adenopathy. BOWEL AND PERITONEAL CAVITY: No obvious masses or inflammatory changes. No free fluid. APPENDIX: Surgically absent. PELVIS, BLADDER, AND ABDOMINAL WALL:No abnormal masses. No free fluid. Bladder normal. BONES: No significant findings. OTHER: No other significant finding. IMPRESSION: NO SIGNIFICANT OR ACUTE PROCESS IN THE ABDOMEN OR PELVIS. COMMENT: Quality ID # [id number]: Final reports with documentation of one or more dose reduction techniques (e.g., Automated exposure control, adjustment of the mA and/or kV according to patient size, use of iterative reconstruction technique) TECHNICAL DOCUMENTATION: JOB ID: [id number] [employer]- All Rights Reserved Reading location - IP/workstation name: [email or web address]
== END 2017-10-03 18:50 | disposition home or self-care (01) ==
LOC: ER 16:05
DX: R30.0 Dysuria (principal); M54.9 Dorsalgia, unspecified; F17.210 Nicotine dependence, cigarettes, uncomplicated
CPT/HCPCS: 36415; 76380; 81001; 81025; 87086; 99284

== ENCOUNTER 2018-12-30 12:36 | Emergency (ER) | payer OTHER ==
--- NOTE | 2018-12-30 13:05 | ER Document Report ---
ED Medical Screen (RME) - General Chief Complaint: Lower Abdominal Pain Stated Complaint: RIGHT SIDE ABDOMINAL PAIN Time Seen by Provider: 12/30/18 12:54 Notes: 38 y/o female who presents with lower pelvic/abd pain. Started about 3 days ago. G 4 P5. Diagnosed with ovarian cyst. Last menstrual cycle was . Admits to vaginal discharge. Denies dysuria. Exam: Mildly tender mid lower abdomen. I have greeted and performed a rapid initial assessment of this patient. A comprehensive ED assessment and evaluation of the patient, analysis of test results and completion of medical decision making process will be conducted by an additional ED providers. TRAVEL OUTSIDE OF THE [place] IN LAST 30 DAYS: No - Related Data Allergies/Adverse Reactions: levofloxacin [From [facility] [address]] Adverse Reaction (Intermediate, Verified 10/03/17 16:28) Past Medical History Renal/ Medical History: Denies: Hx Peritoneal Dialysis Past Surgical History: Reports: Hx Abdominal Surgery - pyloric stenosis, Hx Appendectomy, Hx Section - x2, Hx Gynecologic Surgery - surgery to remove mirena, Hx Tubal Ligation - Immunizations Immunizations up to date: No Hx Diphtheria, Pertussis, Tetanus Vaccination: Yes Physical Exam - Vital signs Vitals: Temp Pulse Resp BP Pulse Ox 97.9 F 97 24 H 127/75 H 98 12/30/18 12:45 12/30/18 12:45 12/30/18 12:45 12/30/18 12:45 12/30/18 12:45 Course - Vital Signs Vital signs: Temp Pulse Resp BP Pulse Ox 97.9 F 97 24 H 127/75 H 98 12/30/18 12:45 12/30/18 12:45 12/30/18 12:45 12/30/18 12:45 12/30/18 12:45 - Laboratory Result Diagrams: 12/30/18 13:10 12/30/18 13:10 Laboratory results interpreted by me: 12/30/18 13:10 BUN 6 L Total Protein 6.2 L Doctor's Discharge - Discharge Clinical Impression: Bacterial vaginosis, Suprapubic abdominal pain, Lower abdominal pain, Sciatic l eg pain Condition: Stable Disposition: HOME, SELF-CARE Additional Instructions: Today you are seen in the emergency department for abdominal pain. We did obtain an ultrasound now which was negative for an ovarian cyst, torsion or any abnormality. Your urinalysis was unremarkable. You do not have a urinary tract infection. Your pelvic specimens it did show that you currently have a bacterial vaginosis. Bacterial vaginosis is condition in which you have an overgrowth of bacteria in the vagina. Sometimes you can have an increase in vaginal discharge and sometimes a urinary frequency or burning. The medication that we used to treat this is called Flagyl. You will be placed on this oral antibiotic for 1 week. Do not drink alcohol while on Flagyl as this can make you violently ill. Please return to the emergency department if your symptoms worsen. Please follow-up with your LICENSING DIRECTOR for follow-up. Your cyst in the emergency department for low back pain. Your symptoms are consistent with sciatica. Continue to use the ibuprofen or other anti- inflammatories as well as the muscle relaxer Robaxin that I am prescribing. Please return to emergency department if you develop any numbness or tingling to your lower extremity, loss of bowel or bladder, any new or worsening symptoms. Abdominal Pain There are many causes of abdominal pain. Pain can mean a serious problem requiring surgery (such as appendicitis). It can also be an innocent problem that goes away on its own (such as a viral infection). Often, time must pass to determine the cause of pain. The physician does not feel that hospitalization is necessary, at present. Things may change within the next 24 hours. Call the doctor or come back for re- examination if any problems occur, such as: (1) Pain that becomes more severe, steady, or becomes concentrated in one specific area. Also, pain that is more severe with movement or coughing. (2) Vomiting that persists or becomes more frequent. (3) Blood in the vomitus, urine, or bowel movements. Blood in the stool may have a tarry or black appearance. (4) Shaking chills or fever greater than 100 degrees F. (5) The abdomen becomes more distended or swollen. (6) Bowel movements cease. (7) Failure to improve as expected. Vaginosis, Bacterial Your exam shows you have bacterial vaginosis. This condition is due to an overgrowth of bacteria in the vagina. Symptoms may include vaginal itching or pain, a smelly discharge, and sometimes burning with urination. Normally this is not transmitted by sexual contact. Vaginosis can be treated with oral or topical antibiotics. Metronidazole (Flagyl) pills are usually effective. Topical vaginal creams include Cleocin and Metro-Gel. You should avoid sexual contact until your symptoms are all better. Call the doctor if you develop pelvic pain, fever, or problems with urination, or if you don't improve as expected. Sciatica Your symptoms suggest "sciatica." The pain of sciatica typically radiates down the leg. Numbness in the foot or calf may also occur. Sciatica is caused by irritation of the sciatic nerve or its branches. The irritation can be due to a herniated disk in the spine, swelling and inflammation in the muscles surrounding the sciatic nerve, or direct injury of the nerve itself. Most cases of sciatica will resolve with medical treatment. Bed rest is usually recommended initially. Surgery is only necessary when the condition will not improve with rest and antiinflammatory medication. Muscle relaxers are often given if muscle soreness is present. A CAT scan of the back may be performed if a herniated disk is suspected. Re-examination is necessary if you develop increasing numbness, localized weakness in the foot or ankle, or if the pain does not respond to rest. Prescriptions: Metronidazole [Flagyl 500 mg Tablet] 500 mg PO BID #14 tablet Methocarbamol [Robaxin 500 mg Tablet] 500 mg PO TID #21 tablet
[2018-12-30 13:34] LABS: ABSOLUTE EOSINOPHILS # (AUTO) 0.1 10^3/uL (0.0-0.6); ABSOLUTE LYMPHOCYTES (AUTO) 1.7 10^3/uL (0.5-4.7); ABSOLUTE MONOCYTES (AUTO) 0.3 10^3/uL (0.1-1.4); ABSOLUTE NEUT (AUTO) 2.8 10^3/uL (1.7-8.2); BASOPHILS % (AUTO) 0.8 % (0-2); EOSINOPHILS % (AUTO) 1.2 % (0-6); HEMATOCRIT 39.6 % (36.0-47.0); HEMOGLOBIN 13.5 g/dL (12.0-15.5); LYMPHOCYTES % (AUTO) 34.6 % (13-45); MEAN CORPUSCULAR HEMOGLOBIN 30.3 pg (27.0-33.4); MEAN CORPUSCULAR HGB CONC 34.1 g/dL (32.0-36.0); MEAN CORPUSCULAR VOLUME 89 fl (80-97); MONOCYTES % (AUTO) 5.7 % (3-13); PLATELET COUNT 175 10^3/uL (150-450); RED BLOOD COUNT 4.45 10^6/uL (3.72-5.28); RED CELL DISTRIBUTION WIDTH 12.8 % (11.5-14.0); SEGMENTED NEUTROPHILS % (AUTO) 57.7 % (42-78); TOTAL CELLS COUNTED % (AUTO) 100 %; WHITE BLOOD COUNT 4.9 10^3/uL (4.0-10.5)
[2018-12-30 13:36] LABS: APPEARANCE,URINE SLIGHTLY-CLOUDY; BILIRUBIN,URINE NEGATIVE (NEGATIVE); COLOR,URINE STRAW; GLUCOSE, URINE NEGATIVE (NEGATIVE); KETONES,URINE NEGATIVE (NEGATIVE); LEUKOCYTE ESTERASE,URINE NEGATIVE (NEGATIVE); NITRITE,URINE NEGATIVE (NEGATIVE); PROTEIN,URINE NEGATIVE (NEGATIVE); URINE SPECIFIC GRAVITY 1.004; UROBILINOGEN,URINE NEGATIVE mg/dL (<2.0)
[2018-12-30 13:52] LABS: ALKALINE PHOSPHATASE 67 U/L (38-126); ANION GAP 7 (5-19); ASPARTATE AMINO TRANSFERASE 23 U/L (14-36); BILIRUBIN,DIRECT 0.1 mg/dL (0.0-0.4); BILIRUBIN,TOTAL 0.4 mg/dL (0.2-1.3); BLOOD UREA NITROGEN 6 mg/dL (7-20); CALCIUM 9.4 mg/dL (8.4-10.2); CARBON DIOXIDE 25 mmol/L (22-30); CHLORIDE 107 mmol/L (98-107); GLUCOSE 95 mg/dL (75-110); POTASSIUM 3.8 mmol/L (3.6-5.0); TOTAL PROTEIN 6.2 g/dL (6.3-8.2)
--- NOTE | 2018-12-30 14:04 | RADIOLOGY REPORT (SQ) ---
EXAM DESCRIPTION: U/S NON OB PEL TV W/DOPPLER COMPLETED DATE/TIME: 12/30/2018 1:50 pm REASON FOR STUDY: pelvic pain COMPARISON: None. TECHNIQUE: Dynamic and static grayscale images acquired of the pelvis via transvaginal approach and recorded on PACS. Additional selected color Doppler and spectral images recorded. LIMITATIONS: None. FINDINGS: UTERUS: Contour normal. No mass. ENDOMETRIAL STRIPE: Small amount of fluid within the endometrial cavity, may be related to the patie nt's phase of menstrual cycle. CERVIX: No nabothian cysts. RIGHT OVARY AND DOPPLER: Normal size. No worrisome masses. Normal arterial vascular flow without evid ence for torsion. LEFT OVARY AND DOPPLER: Normal size. No worrisome masses. Normal arterial vascular flow without evide nce for torsion. FREE FLUID: None noted. OTHER: No other significant finding. MEASUREMENTS: UTERUS: 80.0 x 4.4 x 5.7 cm ENDOMETRIAL STRIPE: 1.1 cm RIGHT OVARY: 3.5 x 2.6 x 2.3 cm LEFT OVARY: 3.5 x 1.9 x 3.6 cm IMPRESSION: 1. Small amount of fluid within the endometrial cavity may be related to the patient's phase of menstrual cycle. Correlation suggested. 2. Examination otherwise unremarkable sonographically. TECHNICAL DOCUMENTATION: JOB ID: [id number] [facility]- All Rights Reserved Rev-08/20 Reading location - IP/workstation name: [email or web address]
--- NOTE | 2018-12-30 14:16 | ER Document Report ---
ED GI/ - General Chief Complaint: Abdominal Pain Stated Complaint: RIGHT SIDE ABDOMINAL PAIN Time Seen by Provider: 12/30/18 12:54 Notes: Patient is a 38-year-old female who presents to the emergency department with a chief complaint of lower abdominal pain. Patient states that 3 days ago she developed right lower quadrant pain that has now spread to her suprapubic area and left lower quadrant. Patient reports she has had this pain in the past and was diagnosed with a ruptured ovarian cyst. Patient reports she has had a slightly increased vaginal discharge that is white in color. Patient denies odor from the vaginal discharge. Patient report her last menstrual cycle was December 13. Patient denies any vaginal bleeding at this time. Patient denies fever. Patient denies nausea, vomiting or diarrhea. Patient also reports having right lower back pain that radiates down her right leg. Patient reports this is been present for 1 week. Patient states there was no injury or fall. Patient reports the pain that radiates down her leg feels like a sharp shooting type pain that is worse when sitting. Patient reports she has had this ever since having her last child but it seems to be worse over the past week. TRAVEL OUTSIDE OF THE [place] IN LAST 30 DAYS: No - Related Data Allergies/Adverse Reactions: levofloxacin [From Levaquin] Adverse Reaction (Intermediate, Verified 10/03/17 16:28) Past Medical History - General Information source: Patient - Social History Smoking Status: Current Every Day Smoker Frequency of alcohol use: Occasional Drug Abuse: None Lives with: Family Family History: Arthritis, DM, Hypertension, Malignancy, Thyroid Disfunction, Other - Pulmonary embolism. Patient has suicidal ideation: No Patient has homicidal ideation: No - Past Medical History Cardiac Medical History: Reports: None Pulmonary Medical History: Reports: None EENT Medical History: Reports: None Neurological Medical History: Reports: None Endocrine Medical History: Reports: None Renal/ Medical History: Reports: None. Denies: Hx Peritoneal Dialysis Malignancy Medical History: Reports: None GI Medical History: Reports: None Musculoskeletal Medical History: Reports None Skin Medical History: Reports None Psychiatric Medical History: Reports: None Traumatic Medical History: Reports: None Infectious Medical History: Reports: None Past Surgical History: Reports: Hx Abdominal Surgery - pyloric stenosis, Hx Appendectomy, Hx Section - x2, Hx Gynecologic Surgery - surgery to remove mirena, Hx Tubal Ligation - Immunizations Immunizations up to date: No Hx Diphtheria, Pertussis, Tetanus Vaccination: Yes Review of Systems - Review of Systems Constitutional: No symptoms reported EENT: No symptoms reported Cardiovascular: No symptoms reported Respiratory: No symptoms reported Gastrointestinal: No symptoms reported Genitourinary: No symptoms reported Female Genitourinary: See HPI Musculoskeletal: No symptoms reported Skin: No symptoms reported Hematologic/Lymphatic: No symptoms reported Neurological/Psychological: No symptoms reported Physical Exam - Vital signs Vitals: Temp Pulse Resp BP Pulse Ox 97.9 F 97 24 H 127/75 H 98 12/30/18 12:45 12/30/18 12:45 12/30/18 12:45 12/30/18 12:45 12/30/18 12:45 Interpretation: Normal - Notes Notes: GENERAL: Well-appearing, well-nourished and in no acute distress. HEAD: Atraumatic, normocephalic. EYES: Pupils equal round and reactive to light, extraocular movements intact, sclera anicteric, conjunctiva are normal. ENT: Nares patent, oropharynx clear without exudates. Moist mucous membranes. NECK: Normal range of motion, supple without lymphadenopathy or JVD. LUNGS: Breath sounds clear to auscultation bilaterally and equal. No wheezes rales or rhonchi. HEART: Regular rate and rhythm without murmurs, rubs or gallops. ABDOMEN: Soft, mild suprapubic pain with palpation, hyperactive bowel sounds. No guarding, no rebound. No masses appreciated. BACK: No cervical, thoracic, lumbar midline tenderness. No saddle anesthesia, normal distal neurovascular exam. GENITOURINARY: Deferred. EXTREMITIES: Normal range of motion, no pitting or edema. No clubbing or cyanosis. NEUROLOGICAL: Cranial nerves II through XII grossly intact. Normal speech, normal gait. PSYCH: Normal mood, normal affect. SKIN: Warm, Dry, normal turgor, no rashes or lesions noted. Course - Re-evaluation Re-evalutation: 12/30/18 15:52 Patient's lab results did reveal a bacterial vaginosis. Patient did not have a leukocytosis, anemia, alteration in electrolytes or a urinary tract infection. I did inform the patient that her vaginal specimens for gonorrhea and chlamydia are pending. We will place the patient on Flagyl twice daily for 1 week. I did explain to the patient that she is refrain from drinking alcohol on this medication. Patient did have an appendectomy back in 2002. Patient's ultrasound was unremarkable. Patient is nontoxic-appearing. Patient was given strict return precautions and told to follow-up with her MEDICAL OFFICE TECHNOLOGY INSTRUCTOR for follow-up. Patient denies questions at this time. Patient also diagnosed with sciatica. Will give a muscle relaxer Robaxin and educated to use anti-inflammatories such as ibuprofen or naproxen. - Vital Signs Vital signs: Temp Pulse Resp BP Pulse Ox 98.5 F 71 24 H 98/70 L 97 12/30/18 15:10 12/30/18 15:10 12/30/18 12:45 12/30/18 15:10 12/30/18 15:10 - Laboratory Result Diagrams: 12/30/18 13:10 12/30/18 13:10 Laboratory results interpreted by me: 12/30/18 13:10 BUN 6 L Total Protein 6.2 L 12/30/18 14:17 Laboratory 12/30/18 12/30/18 12/30/18 13:10 13:10 13:10 WBC 4.9 RBC 4.45 Hgb 13.5 Hct 39.6 MCV 89 MCH 30.3 MCHC 34.1 RDW 12.8 Plt Count 175 Lymph % (Auto) 34.6 [place] % (Auto) 5.7 Eos % (Auto) 1.2 Baso % (Auto) 0.8 Absolute Neuts (auto) 2.8 Absolute Lymphs (auto) 1.7 Absolute Monos (auto) 0.3 Absolute Eos (auto) 0.1 Absolute Basos (auto) 0.0 Seg Neutrophils % 57.7 Sodium 138.8 Potassium 3.8 Chloride 107 Carbon Dioxide 25 Anion Gap 7 BUN 6 L Creatinine 0.62 Est GFR ( Amer) > 60 Est GFR (MDRD) Non-Af > 60 Glucose 95 Calcium 9.4 Total Bilirubin 0.4 Direct Bilirubin 0.1 Neonat Total Bilirubin Not Reportable Neonat Direct Bilirubin Not Reportable Neonat Indirect Bili Not Reportable AST 23 ALT 15 Alkaline Phosphatase 67 Total Protein 6.2 L Albumin 4.0 Urine Color STRAW Urine Appearance SLIGHTLY-CLOUDY Urine pH 7.0 Ur Specific [place] 1.004 Urine Protein NEGATIVE Urine Glucose (UA) NEGATIVE Urine Ketones NEGATIVE Urine Blood NEGATIVE Urine Nitrite NEGATIVE Urine Bilirubin NEGATIVE Urine Urobilinogen NEGATIVE Ur Leukocyte Esterase NEGATIVE Urine WBC (Auto) 2 Urine Bacteria (Auto) TRACE Squamous Epi Cells Auto 3 Urine Mucus (Auto) RARE Urine Ascorbic Acid NEGATIVE - Diagnostic Test Radiology reviewed: Reports reviewed Radiology results interpreted by me: 12/30/18 14:13 Transvaginal US 12/30/18 13:01 IMPRESSION: 1. Small amount of fluid within the endometrial cavity may be related to the patient's phase of menstrual cycle. Correlation suggested. 2. Examination otherwise unremarkable sonographically. Procedures - Pelvic Exam Pelvic exam Time completed: 14:05 Cultures obtained: Yes Wet prep obtained: Yes Herpes culture obtained: No Foreign body removed: No Bimanual exam performed: Yes - No CMT, mild suprapubic tenderness Witnessed by: Colleen BUSTILLO Notes: 12/30/18 14:17 Patient's external genitalia exam was unremarkable without lesions, discharge, erythema or edema. Patient tolerated the insertion of the speculum fairly well. Patient did have a moderate amount of white discharge within the vaginal vault. Discharge - Discharge Clinical Impression: Bacterial vaginosis, Suprapubic abdominal pain, Lower abdominal pain, Sciatic leg pain Condition: Stable Disposition: HOME, SELF-CARE Additional Instructions: Today you are seen in the emergency department for abdominal pain. We did obtain an ultrasound now which was negative for an ovarian cyst, torsion or any abnormality. Your urinalysis was unremarkable. You do not have a urinary tract infection. Your pelvic specimens it did show that you currently have a bacterial vaginosis. Bacterial vaginosis is condition in which you have an overgrowth of bacteria in the vagina. Sometimes you can have an increase in vaginal discharge and sometimes a urinary frequency or burning. The medication that we used to treat this is called Flagyl. You will be placed on this oral antibiotic for 1 week. Do not drink alcohol while on Flagyl as this can make you violently ill. Please return to the emergency department if your symptoms worsen. Please follow-up with your MEDICAL OFFICE TECHNOLOGY INSTRUCTOR for follow-up. Your cyst in the emergency department for low back pain. Your symptoms are consistent with sciatica. Continue to use the ibuprofen or other anti- inflammatories as well as the muscle relaxer Robaxin that I am prescribing. Please return to emergency department if you develop any numbness or tingling to your lower extremity, loss of bowel or bladder, any new or worsening symptoms. Abdominal Pain There are many causes of abdominal pain. Pain can mean a serious problem requiring surgery (such as appendicitis). It can also be an innocent problem that goes away on its own (such as a viral infection). Often, time must pass to determine the cause of pain. The physician does not feel that hospitalization is necessary, at present. Things may change within the next 24 hours. Call the doctor or come back for re- examination if any problems occur, such as: (1) Pain that becomes more severe, steady, or becomes concentrated in one specific area. Also, pain that is more severe with movement or coughing. (2) Vomiting that persists or becomes more frequent. (3) Blood in the vomitus, urine, or bowel movements. Blood in the stool may have a tarry or black appearance. (4) Shaking chills or fever greater than 100 degrees F. (5) The abdomen becomes more distended or swollen. (6) Bowel movements cease. (7) Failure to improve as expected. Vaginosis, Bacterial Your exam shows you have bacterial vaginosis. This condition is due to an overgrowth of bacteria in the vagina. Symptoms may include vaginal itching or pain, a smelly discharge, and sometimes burning with urination. Normally this is not transmitted by sexual contact. Vaginosis can be treated with oral or topical antibiotics. Metronidazole (Flagyl) pills are usually effective. Topical vaginal creams include Cleocin and Metro-Gel. You should avoid sexual contact until your symptoms are all better. Call the doctor if you develop pelvic pain, fever, or problems with urination, or if you don't improve as expected. Sciatica Your symptoms suggest "sciatica." The pain of sciatica typically radiates down the leg. Numbness in the foot or calf may also occur. Sciatica is caused by irritation of the sciatic nerve or its branches. The irritation can be due to a herniated disk in the spine, swelling and inflammation in the muscles surrounding the sciatic nerve, or direct injury of the nerve itself. Most cases of sciatica will resolve with medical treatment. Bed rest is usually recommended initially. Surgery is only necessary when the condition will not improve with rest and antiinflammatory medication. Muscle relaxers are often given if muscle soreness is present. A CAT scan of the back may be performed if a herniated disk is suspected. Re-examination is necessary if you develop increasing numbness, localized weakness in the foot or ankle, or if the pain does not respond to rest. Prescriptions: Metronidazole [Flagyl 500 mg Tablet] 500 mg PO BID #14 tablet Methocarbamol [Robaxin 500 mg Tablet] 500 mg PO TID #21 tablet
[2018-12-30 14:23] LABS: BACTERIA (WET MOUNT) 3+ BACTERIA SEEN; EPITHELIALS (WET MOUNT) 3+ EPITHELIALS SEEN; RBCS (WET MOUNT) 1+ RBCS SEEN; WBCS (WET MOUNT) 2+ WBCS SEEN
[2018-12-30 14:24] LABS: T.VAGINALIS (WET MOUNT) NO TRICHOMONAS SEEN; YEAST (WET MOUNT) NO YEAST SEEN
[2018-12-30 15:00] LABS: CHLAM PCR NOT DETECTED (NOT DETECT)
[2018-12-30 15:12] VITALS: BP 98/70
== END 2018-12-30 15:13 | disposition home or self-care (01) ==
LOC: ER 12:36
DX: N76.0 Acute vaginitis (principal); M54.31 Sciatica, right side; R10.30 Lower abdominal pain, unspecified; B96.89 Other specified bacterial agents as the cause of diseases classified elsewhere; F17.200 Nicotine dependence, unspecified, uncomplicated; Z98.51 Tubal ligation status
CPT/HCPCS: 36415; 76830; 80053; 81001; 84703; 85025; 87210; 87491; 87591; 93976; 99284

== ENCOUNTER 2019-07-09 20:10 | Emergency (ER) | payer OTHER ==
[2019-07-09] MEDS ORDERED: GLUCAGON,HUMAN RECOMB 1 MG INJ IM ONE (20:36)
[2019-07-09] MEDS ORDERED: NORMAL SALINE 1000 ML 1,000 ML IV ONE (20:37)
[2019-07-09] MEDS ORDERED: METOCLOPRAMIDE HCL INJ/PF 10 MG/2 ML SDV IV ONE (20:37)
[2019-07-09] MEDS ORDERED: LIDOCAINE 2% VISCOUS SOLN 15 ML UDCUP PO ONE ×2 (20:37→23:51)
[2019-07-09] MEDS ORDERED: MAG HYDROX/AL HYDROX/SIMETH SUSP 30 ML UDCUP PO ONE ×2 (20:37→23:52)
--- NOTE | 2019-07-09 20:38 | ER Document Report ---
ED Medical Screen (RME) - General Chief Complaint: Nausea/Vomiting Stated Complaint: VOMITING Time Seen by Provider: 07/09/19 20:32 Notes: Patient is a 39-year-old female who presents to the emergency department with a chief complaint of vomiting. Around 2030 last night, she was eating a piece of chicken and she felt that "go down the wrong pipe." She states that she felt the food go down, but can still feel it in her epigastric area. States that she has been throwing up since last night. States that she feels dehydrated. Exam: Tachycardic. I have greeted and performed a rapid initial assessment of this patient. A comprehensive ED assessment and evaluation of the patient, analysis of test results and completion of medical decision making process will be conducted by an additional ED providers. TRAVEL OUTSIDE OF THE [place] IN LAST 30 DAYS: No - Related Data Allergies/Adverse Reactions: levofloxacin [From Levaquin] Adverse Reaction (Intermediate, Verified 07/09/19 20:35) Past Medical History Renal/ Medical History: Denies: Hx Peritoneal Dialysis Past Surgical History: Reports: Hx Abdominal Surgery - pyloric stenosis, Hx Appendectomy, Hx Section - x2, Hx Gynecologic Surgery - surgery to remove mirena, Hx Tubal Ligation - Immunizations Immunizations up to date: No Hx Diphtheria, Pertussis, Tetanus Vaccination: Yes Physical Exam - Vital signs Vitals: Temp Pulse Resp BP Pulse Ox 97.8 F 125 H 16 108/73 97 07/09/19 20:36 07/09/19 20:36 07/09/19 20:36 07/09/19 20:36 07/09/19 20:36 Course - Vital Signs Vital signs: Temp Pulse Resp BP Pulse Ox 97.8 F 125 H 16 108/73 97 07/09/19 20:36 07/09/19 20:36 07/09/19 20:36 07/09/19 20:36 07/09/19 20:36
--- NOTE | 2019-07-09 21:49 | ER Document Report ---
Entered by MER MENEZES SCRIBE 07/09/192117 Acting as scribe for:ANDRZEJ SHARP IV, MD ED GI/ - General Chief Complaint: Nausea/Vomiting Stated Complaint: VOMITING Time Seen by Provider: 07/09/19 20:32 Mode of Arrival: Ambulatory Information source: Patient Notes: This 39 year old female patient presents to the ED today with complaints of nausea and vomiting with associated throat pain that started around 2030 last night. Patient states that she usually has acid reflux flare ups when she eats something with A1 sauce, and last night she ate some chicken that was cooked in the sauce. Patient reports that she felt the chicken "go down the wrong pipe" and that she thought she cleared it; however, she still feels a foreign body sensation in her throat. Patient notes that she took Zegrid prior to arrival to try to relieve her symptoms. TRAVEL OUTSIDE OF THE [place] IN LAST 30 DAYS: No - Related Data Allergies/Adverse Reactions: levofloxacin [From LevTwoTen] Adverse Reaction (Intermediate, Verified 07/09/19 20:35) Past Medical History - General Information source: Patient, [facility] - Social History Smoking Status: Current Every Day Smoker Cigarette use (# per day): Yes Chew tobacco use (# tins/day): No Smoking Education Provided: No Lives with: Friend Family History: Reviewed & Not Pertinent, Arthritis, DM, Hypertension, Malignancy, Thyroid Disfunction, Other - Pulmonary embolism. Patient has suicidal ideation: No Patient has homicidal ideation: No GI Medical History: Reports: Hx Gastroesophageal Reflux Disease Past Surgical History: Reports: Hx Abdominal Surgery - pyloric stenosis, Hx Appendectomy, Hx Section - x2, Hx Gynecologic Surgery - surgery to remove mirena, Hx Tubal Ligation - Immunizations Immunizations up to date: No Hx Diphtheria, Pertussis, Tetanus Vaccination: Yes Review of Systems - Review of Systems Constitutional: No symptoms reported EENT: See HPI, Throat pain Cardiovascular: No symptoms reported Respiratory: No symptoms reported Gastrointestinal: See HPI, Nausea, Vomiting Genitourinary: No symptoms reported Female Genitourinary: No symptoms reported Musculoskeletal: No symptoms reported Skin: No symptoms reported Hematologic/Lymphatic: No symptoms reported Neurological/Psychological: No symptoms reported -: Yes All other systems reviewed and negative Physical Exam - Vital signs Vitals: Temp Pulse Resp BP Pulse Ox 97.8 F 125 H 16 108/73 97 07/09/19 20:36 07/09/19 20:36 07/09/19 20:36 07/09/19 20:36 07/09/19 20:36 - General General appearance: Alert - HEENT Head: Normocephalic, Atraumatic Eyes: Normal Pupils: PERRL - Respiratory Respiratory status: No respiratory distress Chest status: Nontender Breath sounds: Normal Chest palpation: Normal - Cardiovascular Rhythm: Regular Heart sounds: Normal auscultation Murmur: No Friction rub: No Gallop: None auscultated - Abdominal Inspection: Normal Distension: No distension Bowel sounds: Normal Tenderness: Nontender - Abdomen soft Organomegaly: No organomegaly - Back Back: Normal, Nontender - Extremities General upper extremity: Normal inspection General lower extremity: Normal inspection - Neurological Neuro grossly intact: Yes - Psychological Associated symptoms: Normal affect, Normal mood - Skin Skin Temperature: Warm Skin Moisture: Dry Skin Color: Normal Course - Re-evaluation Re-evalutation: 07/10/19 03:14 Results of ED MSE discussed with patient. All questions were answered prior to discharge. Emergency signs and symptoms, reasons to return to the emergency department discussed with patient. - Vital Signs Vital signs: Temp Pulse Resp BP Pulse Ox 97.8 F 65 18 108/66 97 07/10/19 02:35 07/10/19 02:35 07/10/19 02:35 07/10/19 02:35 07/10/19 02:35 - Consults dr. prado Time consulted: 01:00 Reason for consultation: 07/10/19 03:12 Dr. Prado was consulted to discuss the patient's complaint of difficulty swallowing and questionable esophageal food bolus impaction. He recommended that a barium swallow be done. This was done and read as showing no evidence of acute abnormality. Results were discussed with Dr. Prado at 0305 hrs. He stated that the patient could follow-up with her in his office on an outpatient basis if needed. Discharge - Discharge Clinical Impression: Esophageal abrasion Qualifiers: Encounter type: initial encounter Qualified Code(s): S27.818A - Other injury of esophagus (thoracic part), initial encounter Condition: Good Disposition: HOME, SELF-CARE Additional Instructions: Return to the Emergency Department without delay if any worse. HOME CARE INSTRUCTIONS & INFORMATION: Thank you for choosing us for your medical needs. We hope you're satisfied with the care you received. After you leave, you must properly care for your problem and, at the same time, observe its progress. Any condition can change. Some illnesses can change rapidly over hours or days. If your condition worsens, return to the Emergency Department or see your physician promptly. ABOUT YOUR X-RAYS AND EKG'S: If you had an EKG or X-rays taken, they have been read by the Emergency Physician. The X-rays and EKG's will also be read by a Radiologist or Jacket Changer within 24 hours. If discrepancies are noted, you will be notified by telephone. Please be certain the ED has a correct telephone number & address where you can be reached. Also, realize that some fractures or abnormalities do not show up on initial X-rays. If your symptoms continue, see your physician. ABOUT YOUR LABORATORY TEST: If you had laboratory tests, the results have been reviewed by the Emergency Physician. Some test results (for example cultures) may not be available for several days. You will be contacted if any test result shows you need additional treatment. Please be certain the ED has a correct telephone number and address where you can be reached. ABOUT YOUR MEDICATIONS: You will receive instructions on how to take your medicine on the prescription label you receive. Additional information may be provided by the Pharmacy. If you have questions afterwards, call the ED for clarification or further instructions. Some prescribed medications may cause drowsiness. Do not perform tasks such as driving a car or operating machinery without consulting your Pharmacist. If you feel you need a refill of pain medication, your condition will need re-evaluation. Please do not call for a refill of any medication. ABOUT YOUR SIGNATURE: Signature of this document acknowledges to followin. Understanding that you received emergency treatment and that you may be released before al medical problems are known or treated. Please be certain the ED has a correct phone number & address where you can be reached. 2. Acknowledgement that you will arrange for follow-up care as recommended. 3. Authorization for the Emergency Physician to provide information to your follow-up Physician in order to maximize your care. AT ANY TIME, IF YOUR SYMPTOMS CHANGE SIGNIFICANTLY OR WORSEN OR YOU DEVELOP NEW SYMPTOMS, RETURN TO THE EMERGENCY DEPARTMENT IMMEDIATELY FOR RE-EVALUATION. OUR GOAL IS TO PROVIDE EXCELLENT MEDICAL CARE! WE HOPE THAT WE HAVE MET YOUR EXPECTATIONS DURING YOUR EMERGENCY DEPARTMENT VISIT AND THAT YOU FEEL YOU HAVE RECEIVED EXCELLENT CARE! Referrals: TANNER PRADO MD [ACTIVE STAFF] - Follow up as needed I personally performed the services described in the documentation, reviewed and edited the documentation which was dictated to the scribe in my presence, and it accurately records my words and actions.
[2019-07-09] MEDS ORDERED: METOCLOPRAMIDE HCL ORAL SOLN 10 MG/10 ML UDCUP PO ONE (23:52)
[2019-07-09] MEDS ORDERED: ONDANSETRON HCL INJ/PF 4 MG/2 ML SDV IV ONE (23:52)
[2019-07-09] MEDS ORDERED: FAMOTIDINE INJ/PF 20 MG/2 ML SDV IV ONE (23:53)
--- NOTE | 2019-07-10 02:44 | RADIOLOGY REPORT (SQ) ---
PA and lateral esophagram: 07/10/2019 1:41 AM CDT Comparison: None available Indication: 39-year old patient with vomiting. Oral contrast was given to the patient after p.m. lateral radiograph obtained.. Findings: The cardiomediastinal silhouette is normal in size.No pneumothorax is seen. No acute airspace opacities are seen. No discrete pleural effusion is apparent. The visualized portions of the esophagus are well-opacified with contrast and no gross abnormality. There is some contrast seen at the proximal stomach. No gross pneumomediastinum is seen. Impression: No acute airspace opacities are seen. No gross abnormality seen at the esophagus. If there is persistent concern, CT imaging should be considered.
[2019-07-10] MEDS ORDERED: ONDANSETRON ODT 4 MG TAB (6 TAB/ER DISP) PO PRN (03:16)
[2019-07-10 03:48] VITALS: BP 116/56
== END 2019-07-10 03:48 | disposition home or self-care (01) ==
LOC: ER 20:10
DX: S27.818A Other injury of esophagus (thoracic part), initial encounter (principal); R11.2 Nausea with vomiting, unspecified; X58.XXXA Exposure to other specified factors, initial encounter; F17.210 Nicotine dependence, cigarettes, uncomplicated; Z88.3 Allergy status to other anti-infective agents; Z98.51 Tubal ligation status
CPT/HCPCS: 99283; 96372; 96361; 96374; 96375; 71046; J1610; J3490 ×2; J2765; J2405; J7030; S0028; 74220